=== PATIENT | male | born 1975 | race Caucasian/White ===

== ENCOUNTER → 2020-06-21 | Outpatient (CLI) | payer OTHER ==
[~2020-06-21] MED LIST: AUGMENTIN 875-1 EACH PO; BACTRIM 400-801 EACH PO; BASAGLAR K100 UNIT/1 SQ; CIPRO500 MG PO; DAKIN'S SOLUTI500 ML EXT; ENOXAPARIN40 MG/0.4 SC; HUMALOG100 UNIT/3 SC; HYDROCODON-ACE1 EAC6 PO; LIPITOR TAB 1010 MG PO; LISINOPRIL2.5 MG PO; LORTAB 5-325 M1 EACH PO; MAXIPIME 2 GM VI2 GM IV; METFORMIN HCL500 MG PO; PERCOCET 5/325 T1 EA PO; TYLENOL 500 MG500 MG PO; TYLENOL325 MG PO; VANCOCIN IV 11000 MG IV; VANCOMYCIN1.25 GM/12 IV; VICTOZA 1818 MG/3 ML SC; VITAMIN C 500500 MG PO; VITAMIN C500 M1 PO; XYLOCAINE 2% JE30 ML TOP
== END ==
LOC: WCC 13:00
PROC: 0KBV0ZZ Excision of Right Foot Muscle, Open Approach (ICD-10-PCS; principal; 2020-06-21)
DX: E11.621 Type 2 diabetes mellitus with foot ulcer (principal); L97.413 Non-pressure chronic ulcer of right heel and midfoot with necrosis of muscle; E11.52 Type 2 diabetes mellitus with diabetic peripheral angiopathy with gangrene; I96 Gangrene, not elsewhere classified; E11.40 Type 2 diabetes mellitus with diabetic neuropathy, unspecified; E11.69 Type 2 diabetes mellitus with other specified complication; M86.8X9 Other osteomyelitis, unspecified sites; Z79.2 Long term (current) use of antibiotics; Z89.411 Acquired absence of right great toe; Z89.412 Acquired absence of left great toe; Z89.421 Acquired absence of other right toe(s); Z89.422 Acquired absence of other left toe(s)
CPT/HCPCS: 87070; 87077; 87186; 87205; G0463

== ENCOUNTER → 2020-06-28 | Outpatient (CLI) | payer OTHER | LOC: WCC 12:04 | PROC: 0KBV0ZZ Excision of Right Foot Muscle, Open Approach (ICD-10-PCS; principal; 2020-06-28) | DX: E11.621 Type 2 diabetes mellitus with foot ulcer (principal); L97.413 Non-pressure chronic ulcer of right heel and midfoot with necrosis of muscle; E11.52 Type 2 diabetes mellitus with diabetic peripheral angiopathy with gangrene; I96 Gangrene, not elsewhere classified; E11.40 Type 2 diabetes mellitus with diabetic neuropathy, unspecified; E11.69 Type 2 diabetes mellitus with other specified complication; M86.8X9 Other osteomyelitis, unspecified sites; Z89.411 Acquired absence of right great toe; Z89.412 Acquired absence of left great toe; Z89.421 Acquired absence of other right toe(s); Z89.422 Acquired absence of other left toe(s); Z79.2 Long term (current) use of antibiotics ==

== ENCOUNTER → 2020-07-05 | Outpatient (CLI) | payer OTHER | LOC: WCC 10:51 | PROC: 0KBV0ZZ Excision of Right Foot Muscle, Open Approach (ICD-10-PCS; principal; 2020-07-05) | DX: E11.621 Type 2 diabetes mellitus with foot ulcer (principal); L97.413 Non-pressure chronic ulcer of right heel and midfoot with necrosis of muscle; E11.52 Type 2 diabetes mellitus with diabetic peripheral angiopathy with gangrene; I96 Gangrene, not elsewhere classified; E11.40 Type 2 diabetes mellitus with diabetic neuropathy, unspecified; E11.69 Type 2 diabetes mellitus with other specified complication; M86.8X9 Other osteomyelitis, unspecified sites; Z79.2 Long term (current) use of antibiotics; Z89.411 Acquired absence of right great toe; Z89.412 Acquired absence of left great toe; Z89.421 Acquired absence of other right toe(s); Z89.422 Acquired absence of other left toe(s) ==

== ENCOUNTER → 2020-07-12 | Outpatient (CLI) | payer OTHER | LOC: WCC 10:33 | DX: E11.621 Type 2 diabetes mellitus with foot ulcer (principal); L97.519 Non-pressure chronic ulcer of other part of right foot with unspecified severity; E11.40 Type 2 diabetes mellitus with diabetic neuropathy, unspecified; Z89.412 Acquired absence of left great toe; Z89.411 Acquired absence of right great toe ==

== ENCOUNTER → 2020-07-19 | Outpatient (CLI) | payer OTHER | LOC: WCC 08:13 | DX: E11.621 Type 2 diabetes mellitus with foot ulcer (principal); L97.415 Non-pressure chronic ulcer of right heel and midfoot with muscle involvement without evidence of necrosis; E11.40 Type 2 diabetes mellitus with diabetic neuropathy, unspecified; Z89.411 Acquired absence of right great toe; Z89.412 Acquired absence of left great toe; Z89.421 Acquired absence of other right toe(s); Z89.422 Acquired absence of other left toe(s) | CPT/HCPCS: 87070; 87077; 87186; 87205 ==

== ENCOUNTER → 2020-07-30 | Outpatient (CLI) | payer OTHER | LOC: WCC 10:00 | DX: E11.621 Type 2 diabetes mellitus with foot ulcer (principal); L97.415 Non-pressure chronic ulcer of right heel and midfoot with muscle involvement without evidence of necrosis; E11.40 Type 2 diabetes mellitus with diabetic neuropathy, unspecified; Z89.411 Acquired absence of right great toe; Z89.412 Acquired absence of left great toe; Z89.421 Acquired absence of other right toe(s); Z89.422 Acquired absence of other left toe(s); Z79.2 Long term (current) use of antibiotics ==

== ENCOUNTER → 2020-08-06 | Outpatient (CLI) | payer OTHER | LOC: WCC 09:55 | DX: E11.621 Type 2 diabetes mellitus with foot ulcer (principal); L97.415 Non-pressure chronic ulcer of right heel and midfoot with muscle involvement without evidence of necrosis; E11.40 Type 2 diabetes mellitus with diabetic neuropathy, unspecified; Z89.411 Acquired absence of right great toe; Z89.412 Acquired absence of left great toe; Z89.421 Acquired absence of other right toe(s); Z89.422 Acquired absence of other left toe(s); Z79.2 Long term (current) use of antibiotics ==

== ENCOUNTER → 2020-08-13 | Outpatient (CLI) | payer OTHER | LOC: WCC 08:52 | DX: E11.621 Type 2 diabetes mellitus with foot ulcer (principal); L97.415 Non-pressure chronic ulcer of right heel and midfoot with muscle involvement without evidence of necrosis; E11.40 Type 2 diabetes mellitus with diabetic neuropathy, unspecified; Z89.411 Acquired absence of right great toe; Z89.412 Acquired absence of left great toe; Z89.421 Acquired absence of other right toe(s); Z89.422 Acquired absence of other left toe(s); Z91.19 Patient's noncompliance with other medical treatment and regimen; Z79.2 Long term (current) use of antibiotics | CPT/HCPCS: 36415; 73630; 83036 ==

== ENCOUNTER → 2020-08-27 | Outpatient (CLI) | payer OTHER | LOC: WCC 10:00 | DX: E11.621 Type 2 diabetes mellitus with foot ulcer (principal); L97.415 Non-pressure chronic ulcer of right heel and midfoot with muscle involvement without evidence of necrosis; E11.40 Type 2 diabetes mellitus with diabetic neuropathy, unspecified; Z89.411 Acquired absence of right great toe; Z89.412 Acquired absence of left great toe; Z89.421 Acquired absence of other right toe(s); Z89.422 Acquired absence of other left toe(s); Z91.19 Patient's noncompliance with other medical treatment and regimen ==

== ENCOUNTER → 2020-08-31 | Outpatient (CLI) | payer OTHER | LOC: EMI 08:15 | DX: E11.621 Type 2 diabetes mellitus with foot ulcer (principal); L97.519 Non-pressure chronic ulcer of other part of right foot with unspecified severity; L03.115 Cellulitis of right lower limb | CPT/HCPCS: 73718 ==

== ENCOUNTER → 2020-09-03 | Outpatient (CLI) | payer OTHER | LOC: WCC 09:56 | DX: E11.621 Type 2 diabetes mellitus with foot ulcer (principal); L97.415 Non-pressure chronic ulcer of right heel and midfoot with muscle involvement without evidence of necrosis; E11.40 Type 2 diabetes mellitus with diabetic neuropathy, unspecified; B95.7 Other staphylococcus as the cause of diseases classified elsewhere; Z89.411 Acquired absence of right great toe; Z89.412 Acquired absence of left great toe; Z89.421 Acquired absence of other right toe(s); Z89.422 Acquired absence of other left toe(s); Z91.19 Patient's noncompliance with other medical treatment and regimen ==

== ENCOUNTER → 2020-09-10 | Outpatient (CLI) | payer OTHER | LOC: WCC 09:17 | DX: E11.621 Type 2 diabetes mellitus with foot ulcer (principal); L97.415 Non-pressure chronic ulcer of right heel and midfoot with muscle involvement without evidence of necrosis; E11.40 Type 2 diabetes mellitus with diabetic neuropathy, unspecified; Z89.411 Acquired absence of right great toe; Z89.412 Acquired absence of left great toe; Z89.421 Acquired absence of other right toe(s); Z89.422 Acquired absence of other left toe(s); Z91.19 Patient's noncompliance with other medical treatment and regimen ==

== ENCOUNTER → 2020-09-18 | Outpatient (CLI) | payer OTHER | LOC: WCC 10:20 | DX: E11.621 Type 2 diabetes mellitus with foot ulcer (principal); L97.415 Non-pressure chronic ulcer of right heel and midfoot with muscle involvement without evidence of necrosis; E11.40 Type 2 diabetes mellitus with diabetic neuropathy, unspecified; Z89.411 Acquired absence of right great toe; Z89.412 Acquired absence of left great toe; Z89.421 Acquired absence of other right toe(s); Z89.422 Acquired absence of other left toe(s); Z91.19 Patient's noncompliance with other medical treatment and regimen ==

== ENCOUNTER → 2020-09-27 | Outpatient (CLI) | payer OTHER | LOC: WCC 08:00 | PROC: 0JBQ0ZZ Excision of Right Foot Subcutaneous Tissue and Fascia, Open Approach (ICD-10-PCS; principal; 2020-09-27) | DX: E11.621 Type 2 diabetes mellitus with foot ulcer (principal); L97.413 Non-pressure chronic ulcer of right heel and midfoot with necrosis of muscle; E11.52 Type 2 diabetes mellitus with diabetic peripheral angiopathy with gangrene; I96 Gangrene, not elsewhere classified; E11.40 Type 2 diabetes mellitus with diabetic neuropathy, unspecified; E11.69 Type 2 diabetes mellitus with other specified complication; M86.8X9 Other osteomyelitis, unspecified sites; Z89.411 Acquired absence of right great toe; Z89.412 Acquired absence of left great toe; Z89.421 Acquired absence of other right toe(s); Z89.422 Acquired absence of other left toe(s); Z91.19 Patient's noncompliance with other medical treatment and regimen ==

== ENCOUNTER → 2020-09-27 | Outpatient (CLI) | payer OTHER ==
[~2020-09-27] VITALS: Ht 182.9 cm; Wt 66.7 kg
== END ==
LOC: OPSV 09:11
DX: E11.69 Type 2 diabetes mellitus with other specified complication (principal); M86.9 Osteomyelitis, unspecified; E11.621 Type 2 diabetes mellitus with foot ulcer; L97.509 Non-pressure chronic ulcer of other part of unspecified foot with unspecified severity
CPT/HCPCS: 96365; J0875; J7060

== ENCOUNTER → 2020-10-18 | Outpatient (CLI) | payer OTHER | LOC: WCC 09:14 | PROC: 0JBQ0ZZ Excision of Right Foot Subcutaneous Tissue and Fascia, Open Approach (ICD-10-PCS; principal; 2020-10-18) | DX: E11.621 Type 2 diabetes mellitus with foot ulcer (principal); L97.519 Non-pressure chronic ulcer of other part of right foot with unspecified severity; E11.40 Type 2 diabetes mellitus with diabetic neuropathy, unspecified; Z89.411 Acquired absence of right great toe; Z89.412 Acquired absence of left great toe; Z89.421 Acquired absence of other right toe(s); Z89.422 Acquired absence of other left toe(s); Z91.19 Patient's noncompliance with other medical treatment and regimen | CPT/HCPCS: 87070; 87205 ==

== ENCOUNTER → 2020-10-25 | Outpatient (CLI) | payer OTHER | LOC: WCC 11:16 | DX: E11.621 Type 2 diabetes mellitus with foot ulcer (principal); L97.515 Non-pressure chronic ulcer of other part of right foot with muscle involvement without evidence of necrosis; E11.40 Type 2 diabetes mellitus with diabetic neuropathy, unspecified; Z89.411 Acquired absence of right great toe; Z89.412 Acquired absence of left great toe; Z89.421 Acquired absence of other right toe(s); Z89.422 Acquired absence of other left toe(s); Z91.19 Patient's noncompliance with other medical treatment and regimen ==

== ENCOUNTER → 2020-11-01 | Outpatient (CLI) | payer OTHER | LOC: WCC 11:15 | DX: E11.621 Type 2 diabetes mellitus with foot ulcer (principal); L97.515 Non-pressure chronic ulcer of other part of right foot with muscle involvement without evidence of necrosis; E11.40 Type 2 diabetes mellitus with diabetic neuropathy, unspecified; Z89.412 Acquired absence of left great toe; Z89.411 Acquired absence of right great toe; Z89.422 Acquired absence of other left toe(s); Z89.421 Acquired absence of other right toe(s) ==